=== PATIENT | male | born 1975 | race Caucasian/White ===

== ENCOUNTER 2022-09-24 04:13 | Day surgery (SDC) | payer BC, OTHER ==
[2022-09-20 10:08] VITALS: BMI 38.2
[~2022-09-24 04:13] MED LIST: BACITRACIN 3.5 GM OPTHALMIC OINT TUBE OS ONE; NEOMYCIN/POLYMYX/HC OPHTHALMIC SUSPENSION 7.5 ML BOTTLE OS ONE; PHENYLEPHRINE 2.5% OPHTH SOLN 15 ML BOTTLE OS ONE; PHENYLEPHRINE 2.5% OPTHALMIC DROP BOTTLE OS ONE; POVIDONE-IODINE 5% OPHTHALMIC PREP 30 ML SOLUTION OS ONE; TETRACAINE 0.5% OPHTH SOLN 2 ML BOTTLE OS ONE; TOBRAMYCIN/DEXAMETHASONE OPHTH. OINTMENT 1 TUBE OS ONE
[2022-09-24] MEDS ORDERED: TROPICAMIDE 1% OPHTH SOLN 15 ML BOTTLE ONE (07:15)
[2022-09-24] MEDS ORDERED: TETRACAINE 0.5% OPHTH SOLN 2 ML BOTTLE ONE (07:15)
[2022-09-24] MEDS ORDERED: CIPROFLOXACIN HCL 0.3% OPHTH 2.5ML BOTTLE ONE (07:15)
[2022-09-24] MEDS ORDERED: PHENYLEPHRINE 2.5% OPTHALMIC DROP 2ML BOTTLE ONE (07:15)
[2022-09-24] MEDS ORDERED: BACITRACIN/POLYMYXIN OPH OINT 3.5 GM TUBE ONE (07:16)
[2022-09-24] MEDS ORDERED: TOBRAMYCIN/DEXAMETHASONE OPHTH. OINTMENT 1 TUBE ONE (07:22)
[2022-09-24] MEDS ORDERED: NEO/POLYMYX B SULF/DEXAMETH OPHTHALMIC 5ML BOTTLE ONE (07:22)
[2022-09-24] MEDS ORDERED: FENTANYL CITRATE/PF 50 MCG/ML VIAL ONE ×3 (07:24→09:17)
[2022-09-24] MEDS ORDERED: MIDAZOLAM HCL 2 MG/2 ML SINGLE DOSE VIAL ONE (07:25)
[2022-09-24] MEDS ORDERED: PROPOFOL 20 ML ONE ×2 (07:25→08:00)
[2022-09-24] MEDS ORDERED: SUCCINYLCHOLINE CHLORIDE 200 MG/10 ML SYRINGE ONE (07:25)
[2022-09-24] MEDS ORDERED: CYCLOPENTOLATE 2% OPHTH SOLN 2 ML BOTTLE OP ONE (07:30)
[2022-09-24] MEDS ORDERED: TROPICAMIDE 1% OPHTH SOLN 15 ML BOTTLE OP ONE (07:30)
[2022-09-24] MEDS ORDERED: PHENYLEPHRINE 2.5% OPHTH SOLN 15 ML BOTTLE OP ONE (07:30)
[2022-09-24] MEDS ORDERED: TETRACAINE 0.5% HCL 0.6ML DROPPER.BOTTLE OP ONE (07:30)
[2022-09-24] MEDS ORDERED: CIPROFLOXACIN HCL 0.3% OPHTH 2.5ML BOTTLE OP ONE (07:30)
[2022-09-24] MEDS ORDERED: BACITRACIN 3.5 GM OPTHALMIC OINT TUBE OU ONE (08:06)
[2022-09-24] MEDS ORDERED: BACITRACIN 3.5 GM OPTHALMIC OINT TUBE OS ONE (08:06)
[2022-09-24] MEDS ORDERED: PHENYLEPHRINE 2.5% OPTHALMIC DROP BOTTLE OS ONE (08:07)
[2022-09-24] MEDS ORDERED: ONDANSETRON 4 MG/2 ML VIAL IVPUSH PRN (08:50)
[2022-09-24] MEDS ORDERED: ACETAMINOPHEN 325 MG TABLET (FP) PO PRN (08:50)
[2022-09-24] MEDS ORDERED: LACTATED RINGERS SOLUTION 1,000 ML IV SCH (09:00)
[2022-09-24] MEDS ORDERED: ACETAMINOPHEN 1000 MG/100 ML BAG IVPB ONE (09:36)
[2022-09-24] MEDS ORDERED: FENTANYL CITRATE/PF 50 MCG/ML VIAL IVPUSH PRN (11:41)
[2022-09-24 12:07] VITALS: TEMP 98.9
[2022-09-24 13:21] VITALS: BP 130/70; PULSE 60; RESP 18
== END 2022-09-24 11:05 | disposition home or self-care (01) ==
LOC: JASU-SURG 04:13
PROVIDERS: ATTEND Ophthalmology
PROC: 08SM0ZZ Reposition Left Extraocular Muscle, Open Approach (ICD-10-PCS; principal; 2022-09-24 07:30)
DX: H50.10 Unspecified exotropia (principal); H50.89 Other specified strabismus
CPT/HCPCS: 94760

== ENCOUNTER 2023-01-02 10:41 | Observation (INO) | payer BC, OTHER ==
[2023-01-02 11:13] VITALS: BMI 39.5
[2023-01-02] MEDS ORDERED: NALOXONE HCL 0.4 MG/ML VIAL IVPUSH ONE ×2 (11:31→22:58)
[2023-01-02] MEDS ORDERED: NALOXONE HCL 0.4 MG/ML VIAL ONE (11:32)
[2023-01-02 17:02] LABS: ALBUMIN 3.9 g/dl (3.4-5.0); BILIRUBIN,TOTAL 0.6 mg/dl (0.2-1); CREATININE 1.4 mg/dl (0.55-1.3); TOT PROT 7.3 g/dl (6.4-8.2)
[2023-01-02 17:49] LABS: VENOUS BASE EXCESS -2.9 mmol/L (-2-2); VENOUS O2 SATURATION 76.9 % (70-80); VENOUS PCO2 67.1 mmHg (38-52); VENOUS PH 7.224 (7.310-7.410)
[2023-01-02 17:50] LABS: HEMATOCRIT 34.6 % (35.4-49); HEMOGLOBIN 11.3 GM/dL (11.7-16.9); MCH 29.7 pg (25.7-33.7); MCHC 32.6 g/dl (32.0-35.9); MEAN CELL VOLUME 90.9 fl (80-96); MEAN PLT VOLUME 8.1 fl (7.5-11.1); PLATELET COUNT 371 10^3/uL (134-434); WHITE BLOOD COUNT 11.9 K/mm3 (4.0-10.0)
[2023-01-02 17:59] LABS: N-TERMINAL BNP 722.9 pg/ml (5-125)
[2023-01-02] MEDS ORDERED: FUROSEMIDE 40 MG/4 ML INJECTABLE VIAL IVPUSH ONE (18:39)
[2023-01-02] MEDS ORDERED: FUROSEMIDE 40 MG/4 ML INJECTABLE VIAL ONE (18:44)
[2023-01-02] MEDS ORDERED: CEFTRIAXONE 1 GM in DEXTROSE 5%-WATER - 100 ML IVPB ONE (18:48)
[2023-01-02] MEDS ORDERED: cefTRIAXone SODIUM 1 GM VIAL ONE (18:52)
[2023-01-02 22:43] LABS: VENOUS BASE EXCESS -4.8 mmol/L (-2-2); VENOUS O2 SATURATION 93.2 % (70-80); VENOUS PCO2 59.8 mmHg (38-52)
[2023-01-03] MEDS ORDERED: HALOPERIDOL LACTATE 5 MG/ML IM ONE (00:09)
[2023-01-03] MEDS ORDERED: LORazepam 2 MG/ML SDV VIAL IM ONE (01:00)
[2023-01-03 07:58] LABS: ALBUMIN 3.3 g/dl (3.4-5.0); BILIRUBIN,TOTAL 0.4 mg/dl (0.2-1); CALCIUM 9.1 mg/dl (8.5-10); CREATININE 1.3 mg/dl (0.55-1.3); TOT PROT 6.1 g/dl (6.4-8.2)
[2023-01-03 09:29] VITALS: BP 110/58; PULSE 88; RESP 16; TEMP 98.9
[2023-01-03 09:58] LABS: WHITE BLOOD COUNT 9.1 K/mm3 (4.0-10.0)
[2023-01-03] MEDS ORDERED: CEPHALEXIN MONOHYDRATE 500 MG CAPSULE (UD) PO SCH (10:00)
[2023-01-03 10:12] LABS: BASO % 0.3 % (0-2.0); EOS % 0.7 % (0-4.5); HEMATOCRIT 30.1 % (35.4-49); HEMOGLOBIN 10.3 GM/dL (11.7-16.9); LYMPH % 20.7 % (8-40); MCH 30.9 pg (25.7-33.7); MCHC 34.3 g/dl (32.0-35.9); MEAN CELL VOLUME 90.2 fl (80-96); MEAN PLT VOLUME 7.9 fl (7.5-11.1); MONO % 4.7 % (3.8-10.2); NEUT % 73.6 % (42.8-82.8); PLATELET COUNT 312 10^3/uL (134-434); RBC 3.33 M/mm3 (4.00-5.60); RDW 14.1 % (11.9-15.9)
== END 2023-01-03 10:18 | disposition other institution (70) ==
LOC: SUPCPDRO 10:41 → FER 10:41 → FM/S 19:16
PROVIDERS: ADMIT Internal Medicine
PROC: 3E03329 Introduction of Other Anti-infective into Peripheral Vein, Percutaneous Approach (ICD-10-PCS; principal; 2023-01-02)
PROC: 3E033GC Introduction of Other Therapeutic Substance into Peripheral Vein, Percutaneous Approach (ICD-10-PCS; 2023-01-02)
PROC: 3E023NZ Introduction of Analgesics, Hypnotics, Sedatives into Muscle, Percutaneous Approach (ICD-10-PCS; 2023-01-02)
PROC: 3E033NZ Introduction of Analgesics, Hypnotics, Sedatives into Peripheral Vein, Percutaneous Approach (ICD-10-PCS; 2023-01-02)
DX: T40.2X1A Poisoning by other opioids, accidental (unintentional), initial encounter (principal); I10 Essential (primary) hypertension; J44.9 Chronic obstructive pulmonary disease, unspecified; K21.9 Gastro-esophageal reflux disease without esophagitis; U07.1 COVID-19; Z88.6 Allergy status to analgesic agent; Z88.8 Allergy status to other drugs, medicaments and biological substances; Z91.018 Allergy to other foods
CPT/HCPCS: 0241U-QW; 36415; 71045-TC-FY; 80053; 81003; 82803; 83880; 85025; 85027; 87040; 93005; 99291; G0378